=== PATIENT | female | born 1930 | race Caucasian/White ===

== ENCOUNTER 2017-02-22 13:59 | Emergency (ER) | payer MEDICARE ==
[~2017-02-22] VITALS: Ht 162.6 cm; Wt 69.4 kg
[~2017-02-22 13:59] MED LIST: CENTRUM SILVER1 EAC3 PO; ECPIRIN325 MG PO; LEVOTHYROXINE50 MCG PO; MACRODANTIN100 MG PO; PRAVACHOL20 MG PO; ZESTRIL40 MG PO; ZIPSOR25 MG PO
[2017-02-22] MEDS ORDERED: ZOFRAN ODT4 MG PO (15:31)
== END 2017-02-22 15:59 | disposition home or self-care (01) ==
LOC: ED 13:59
DX: R10.9 Unspecified abdominal pain (principal); E03.9 Hypothyroidism, unspecified; I10 Essential (primary) hypertension; Z90.710 Acquired absence of both cervix and uterus; Z79.899 Other long term (current) drug therapy; Z79.82 Long term (current) use of aspirin
CPT/HCPCS: 80053; 81001; 82150; 83690; 85025; 96374; 99283

== ENCOUNTER 2017-03-03 12:30 | Inpatient (IN) | payer MEDICARE ==
[~2017-03-03] VITALS: Ht 162.6 cm; Wt 65.0 kg
[~2017-03-03 12:30] MED LIST changes: +ZOFRAN ODT4 MG PO
[2017-03-03] MEDS ORDERED: CALCIUM500 MG PO (17:13)
--- NOTE | 2017-03-05 07:42 | EKG ---
[facility] [address] [facility] [place], [place] [address] Signed Normal sinus rhythm Normal ECG No previous ECGs available Confirmed by ALEXANDRA MAR MD ([id number]) on 03/05/2017 7:42:10 AM Electronically Signed By: ALEXANDRA MAR MD 03/05/17 0742 PATIENT NAME: ESDRAS GUILLEN Electrocardiogram DATE OF : 32 PHYSICIAN: ALEXANDRA MAR MD REPORT #: [id number] REPORT IS CONFIDENTIAL AND NOT TO BE RELEASED WITHOUT AUTHORIZATION
--- NOTE | 2017-03-05 07:59 | OR ---
[facility] [address] [place], [place] [address] Signed DATE OF OPERATION: 03/04/2017 SURGEON: Jamarcus Kelly MD PREOPERATIVE DIAGNOSIS: Obstructing proximal transverse colon cancer. POSTOPERATIVE DIAGNOSIS: Obstructing proximal transverse colon cancer. PROCEDURE: 1. Right colectomy with vel [id number]-db-[id number] ileocolic anastomosis. 2. Right liver shave biopsy. ESTIMATED BLOOD LOSS: Minimal. FINDINGS: Jena had a circumferential tumor in the proximal transverse colon, probably 5 cm in length. The lumen was so small, our nurse could not pass her pinky through the lumen. She also had multiple visible palpable lymph nodes, 1 cm less in size along the branch of the middle colic artery and the ileocolic artery. She had just a tiny macular lesion on the surface of the liver about 4 to 5 cm lateral to the gallbladder. We removed that sharply with the 15 blade knife. No other evidence of any lesions on the liver or the peritoneal surfaces. INDICATIONS: Jena is an 86-year-old female, who remains quite healthy and active with good functional status. She uses her cane mainly for balance reasons. She still lives in a mobile home with her , who has Alzheimer disease. She is still able to drive and get her around to help him quite a bit. Within the last 3 weeks, maybe 4 weeks, she was having trouble with significant abdominal distention and pain, and nausea and vomiting. She came to the emergency room for evaluation. In the emergency room, her white count was normal, but her sodium was low at 124. Her CT scan of the abdomen and pelvis showed a 5 cm circumferential mass in the proximal transverse colon with dilation of the right colon and a little bit of the terminal ilium as well. I was asked to see her as a general surgeon pmo consultant. She told me that her last colonoscopy was over 10 years ago. She also said that her went through a colon cancer and had surgery and chemotherapy and did well. That was also a little over 10 years ago. We admitted her to the hospital to correct her sodium and by morning, she had passed quite a bit of flatus. Electronically Signed By: JAMARCUS KELLY MD 03/05/17 0759 PATIENT NAME: ESDRAS GUILLEN OPERATIVE REPORT DATE OF : 31 PHYSICIAN: JAMARCUS KELLY MD REPORT #: [id number] REPORT IS CONFIDENTIAL AND NOT TO BE RELEASED WITHOUT AUTHORIZATION [facility] [address] [place], [place] [address] Signed Her abdomen was markedly improved. We did order a CEA level and that came back normal at 0.962. I had a long discussion with Jena and her daughter and explained that we would generally like to perform a colonoscopy to rule out any synchronous lesions. However, Jena has been quite miserable over the last 2 to 3 weeks and we were not sure if she could tolerate a formal bowel prep. Consequently, we elected to proceed with a right colectomy with a thought we will do a colonoscopy in a few weeks when she is healed up and feeling better. In addition, the CT scan did not show any obvious metastatic disease in the abdomen, particularly with respect to the liver. I reviewed with Jena and her daughter, the nature of a right colectomy through a vertical midline incision. They understand the nature of that surgery along with expected intraop and postop course. There is risk to surgery including, but not limited to bleeding, infection, scarring, change in contour of the skin, damage to bowel, damage to the ureter, anastomotic leak, incisional hernias and other unforeseen comorbidities. They are well aware of the possibility of chemo given her 's history. She had expressed understanding and wished to proceed. PROCEDURE NOTE: I met with Jena, her and the daughter and granddaughter in the preop area. All questions were answered. Jena was then taken into the operating room and placed in the supine position under general endotracheal tube anesthesia. She was already on preoperative antibiotics along with subcutaneous heparin. SCDs are already in place. Paulino catheter was inserted with return of clear yellow urine. When she was pharmacologically paralyzed, I re-examine the abdomen and I still could not feel a palpable mass in the right upper quadrant. After this, she was prepped and draped in the usual sterile fashion. We then proceeded with a standard repair umbilical midline incision and carried it into the abdomen with the help of the cautery without difficulty. One could easily see and feel her circumferential constricting tumor in the proximal transverse colon. It had drawn the gastrocolic ligament up, so it was a little bit close to the greater curve of the stomach. The right colon was full of liquid and chronically distended and thickened and it made it more difficult to elevate the colon up and out of the abdomen and hold it in place. We had additional nurse scrub in and we placed our Bookwalter retractor in order to access the right colon. We freed up along the cecum and up the white line of Toldt around the hepatic flexure and over towards the pancreas and the duodenum. This brought the colon up and out of the abdomen. We then went about 10 cm distal to the tumor and we divided the colon transversely with the help of a linear stapler. The mesocolon was divided between Pean clamps and 0 Vicryl ties. I had to separate the omentum from the greater curve of the stomach very close to the stomach in order to capture all the omentum in the mesocolon. We continued to divide the mesocolon then toward the head of the pancreas between Pean clamps and 0 Vicryl ties. I could feel the lymph nodes down around the branch of the middle colic artery as well as the ileocolic artery. All palpable lymph nodes were removed en-bloc with the specimen. Fortunately, the tumor was not adherent to any other structures. After this, we Electronically Signed By: JAMARCUS KELLY MD 03/05/17 0759 PATIENT NAME: ESDRAS GUILLEN OPERATIVE REPORT DATE OF : 31 PHYSICIAN: JAMARCUS KELLY MD REPORT #: [id number] REPORT IS CONFIDENTIAL AND NOT TO BE RELEASED WITHOUT AUTHORIZATION [address] [address] Signed continued to divide the mesocolon down towards the terminal ilium and we divided the terminal ilium transversely with a linear stapler about 10 cm proximal to the ileocecal valve. The entire specimen was passed off the field. The specimen was opened on the back table by a circulating nurse and the pictures were taken for photodocumentation. After this, we brought the terminal ilium over to the transverse colon and performed a otxs-dq-ofed stapled anastomosis. We held the mesenteric side of the bowel together with interrupted silk sutures and then opened the corners of our staple lines and placed our 75 mm linear stapler for the anastomosis. After this, the end of the small bowel and large bowel were closed transversely with the help of the TA 60 stapler. We then used additional silk Lembert sutures to invert the anterior staple line on the antimesenteric side of the colon. Some additional stitches were placed between the colon and small bowel at the crotch of the staple line. After this, the mesenteric opening was closed with running 0 Vicryl suture. We used copious amounts of warm antibiotic saline solution to irrigate out the abdomen and suction that out until clear. On inspection, we found one single 2.5-3 mm macular lesion on the right lobe of the liver on the surface just about 4 cm lateral to the gallbladder fossa. We come underneath that sharply with our 15 blade knife for a complete shave biopsy. We then cauterized the biopsy site for hemostasis. We could not palpate nor see any other visible lesions involving the right or left lobe of the liver. There was no peritoneal studding. After this, the midline fascia was closed with interrupted #1 PDS figure-of-8 sutures. The wound was irrigated and suctioned out until clear. We closed the dermis with interrupted 3-0 Monocryl sutures. Vel were then used to approximate the skin. Dry gauze and tape were then applied over the incision. Jena was then awakened from anesthesia, extubated in the OR, and taken to the recovery room in stable condition. Jena's procedure was prolonged and difficult. The right colon was very distended and full of fluid, very heavy, very awkward to hold in place. Consequently, we needed an additional nurse to help scrub in to help with retraction and holding the colon, so we would not avulse the colon from its mesenteric attachment. In addition, this surgery took 30 to 45 minutes longer than usual. Again, because of these issues, her case was prolonged and difficult. Jamarcus Kelly MD Electronically Signed By: JAMARCUS KELLY MD 03/05/17 0759 PATIENT NAME: ESDRAS GUILLEN OPERATIVE REPORT DATE OF : 31 PHYSICIAN: JAMARCUS KELLY MD REPORT #: [id number] REPORT IS CONFIDENTIAL AND NOT TO BE RELEASED WITHOUT AUTHORIZATION [address] [place], [place] [address] Signed ALB/MODL /[id number] cc: MD Jamarcus Beyer MD Electronically Signed By: JAMARCUS KELLY MD 03/05/17 0759 PATIENT NAME: ESDRAS GUILLEN OPERATIVE REPORT DATE OF : 31 PHYSICIAN: JAMARCUS KELLY MD REPORT #: [id number] REPORT IS CONFIDENTIAL AND NOT TO BE RELEASED WITHOUT AUTHORIZATION
--- NOTE | 2017-03-05 07:59 | CONS ---
[facility] [address] [place], [place] [address] Signed DATE OF CONSULTATION: 03/03/2017 CHIEF COMPLAINT: Generalized abdominal pain with nausea and vomiting. HISTORY OF PRESENT ILLNESS: Jena is an 86-year-old female who is generally healthy and has good functional status. 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 They live in a mobile home here in [place], and she continues to drive and generally does quite well. She told me that her had colon cancer a number of years ago and had to go through chemotherapy. Jena said she had her last colonoscopy more than 10 years ago. Over the last 2 or 3 weeks, she has had upper abdominal pain with generalized abdominal distention and then nausea and vomiting, may worse after eating. Apparently, she came to the emergency room earlier in the month with UTI and then came back with this upper abdominal pain. I think this might be her 3rd trip back to the ER. On this occasion, she has been hemodynamically stable and her white count was normal, but she went ahead and had a CT scan performed and sure enough she has a 5 cm apple-core lesion in the proximal transverse colon with everything dilated proximal to that. Consequently, I was asked to admit her as a general surgeon on-call. 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 PAST SURGICAL HISTORY: Right total hip replacement, a full hysterectomy for uterine prolapse, colonoscopy greater than 10 years ago. SOCIAL HISTORY: She does not smoke or drink. She is to her who has Alzheimer dementia and also had a previous history of colon cancer. They live here in town in their mobile home. She continues to drive. He drives a little bit. They prefer the local [facility]. Dr. Dusty Barrios is her primary care provider. They have 3 children in total. She is retired from retail. Pamela Cedillo is her daughter at [phone], who lives in [place], [place]. FAMILY HISTORY: Mainly coronary artery disease. REVIEW OF SYSTEMS: She had 10 systems reviewed and seemed to be pretty healthy, otherwise. Electronically Signed By: JAMARCUS KELLY MD 03/05/17 0759 PATIENT NAME: ESDRAS GUILLEN CONSULTATION DATE OF : 31 PHYSICIAN: JAMARCUS KELLY MD REPORT #: [id number] REPORT IS CONFIDENTIAL AND NOT TO BE RELEASED WITHOUT AUTHORIZATION [facility] [address] [place] [id number] Signed ALLERGIES: None. MEDICATIONS: Nitrofurantoin, Zofran, lisinopril, pravastatin, diclofenac, levothyroxine, aspirin, and multivitamin. PHYSICAL EXAMINATION: VITAL SIGNS: Blood pressure 120/72, heart rate 78, respiratory rate 16, temperature 97.2, she is 96% on room air. She is 5 feet 4 inches and 68 kg. GENERAL: Jena is an 86-year-old female, lying supine, semi-recumbent in her ER bed. Her daughter is at the bedside. Jena does not appear systemically ill or toxic. She is an excellent historian and very pleasant to talk with. LUNGS: Generally clear to auscultation bilaterally. HEART: Regular rate and rhythm. ABDOMEN: Shows moderate distention. Generally soft and nontender. I cannot feel a mass in the right upper quadrant nor over the liver edge. LABORATORY DATA: Shows white blood count of 5.0, hemoglobin 12, her mean cell volume 78. Her sodium is low at 124, BUN 13, creatinine 0.72. Liver function tests are negative. Albumin is 3.9. Her urinalysis shows some ketones and +1 bacteria. RADIOGRAPHIC STUDIES: The CT scan of the abdomen and pelvis is reviewed along with the report. Indeed she has a 5 cm mass in the proximal transverse colon with the right colon and small bowel distended and fluid filled. She has a small hiatal hernia and little diverticulosis. ASSESSMENT AND PLAN: Jena is an 86-year-old female who appears to have an obstructing colon cancer in the proximal transverse colon. She also has significant hyponatremia. She is going to be admitted at this time and started on IV fluids. She may have a continued urinary tract infection, so we will go ahead and start antibiotics to cover not only the urinary tract infection, but her bowel as well. Once we have her medically stable, she is going to need a right colectomy. I have explained this to Jena and her daughter, they have expressed understanding and agreed to the above plan. Jamarcus Kelly MD Electronically Signed By: JAMARCUS KELLY MD 03/05/17 0759 PATIENT NAME: ESDRAS GUILLEN CONSULTATION DATE OF : 31 PHYSICIAN: JAMARCUS KELLY MD REPORT #: [id number] REPORT IS CONFIDENTIAL AND NOT TO BE RELEASED WITHOUT AUTHORIZATION [facility] [address] [address] [place] [address] Signed ALB/MODL /[id number] cc: MD Dusty Madera MD Electronically Signed By: JAMARCUS KELLY MD 03/05/17 0759 PATIENT NAME: ESDRAS GUILLEN CONSULTATION DATE OF : 31 PHYSICIAN: JAMARCUS KELLY MD REPORT #: [id number] REPORT IS CONFIDENTIAL AND NOT TO BE RELEASED WITHOUT AUTHORIZATION
[2017-03-09] MEDS ORDERED: MAPAP325 MG PO (09:31)
[2017-03-09] MEDS ORDERED: HYDROCODON-ACE1 EA10 PO (09:32)
--- NOTE | 2017-03-26 18:42 | DS ---
[facility] [address] [place], [place] [address] Signed ADMISSION DATE: 03/03/2017 DISCHARGE DATE: 03/09/2017 DIAGNOSIS: Obstructing colon cancer proximal transverse colon. PROCEDURE: Right colectomy. HISTORY OF PRESENT ILLNESS: Jena is an 86-year-old female who presented to our ER with basically symptoms of a bowel obstruction. She said her last colonoscopy was over 10 years ago. She told us that her has been through colon cancer a little over 10 years ago and actually received some chemotherapy. Her CT scan showed a 5 cm apple-core lesion in the proximal transverse colon. We admitted her overnight and gave her hydration. She did pass some flatus overnight and so her abdominal distension was markedly improved. However, we did not feel she was going to tolerate a bowel prep, so we went and took her to surgery on 03/04/2017. She had a classic right colectomy with a stapled xzqa-sl-fwco ileocolic anastomosis. She had one tiny 2-3 mm lesion on the surface of the right lobe of the liver and we took a shave biopsy and unfortunately that since come back with cancer. Also, she has cancer in her lymph nodes. She did well both intra and postop. I had left town for the holidays and Dr. Rodriguez was able to cover Jena through the rest of her hospital stay. He discharged her to home on 03/09/2017. DISCHARGE PLANS AND MEDICATIONS: Jena was discharged home by Dr. Rodriguez. She can certainly continue her regular diet at home. She can walk up and downstairs and shower and bathe as needed. She should not lift over about 25 pounds. The krissy were left in place to be removed in the office. She has made an appointment to follow up with me in my office here in a week or so. She and her family had expressed understanding and agreed with above plan. Jamarcus Kelly MD Electronically Signed By: JAMARCUS KELLY MD 03/26/17 1842 PATIENT NAME: ESDRAS GUILLEN DISCHARGE SUMMARY DATE OF : 31 PHYSICIAN: JAMARCUS KELLY MD REPORT #: [id number] REPORT IS CONFIDENTIAL AND NOT TO BE RELEASED WITHOUT AUTHORIZATION [facility] [address] [place] [address] Signed [facility] /[id number] cc: MD Jamarcus Beyer MD Electronically Signed By: JAMARCUS KELLY MD 03/26/17 184 PATIENT NAME: ESDRAS GUILLEN DISCHARGE SUMMARY DATE OF : 31 PHYSICIAN: JAMARCUS KELLY MD REPORT #: [id number] REPORT IS CONFIDENTIAL AND NOT TO BE RELEASED WITHOUT AUTHORIZATION
== END 2017-03-09 12:55 | disposition home or self-care (01) | DRG 330 ==
LOC: ED 12:30 → MS 17:06
PROVIDERS: ADMIT Colon & Rectal Surgery
PROC: 0FB10ZX Excision of Right Lobe Liver, Open Approach, Diagnostic (ICD-10-PCS; 2017-03-04)
PROC: 0DBL0ZZ Excision of Transverse Colon, Open Approach (ICD-10-PCS; principal; 2017-03-04 12:00)
DX: D49.0 Neoplasm of unspecified behavior of digestive system (principal); K56.699 Other intestinal obstruction unspecified as to partial versus complete obstruction; E87.1 Hypo-osmolality and hyponatremia; K59.09 Other constipation; I10 Essential (primary) hypertension; E78.5 Hyperlipidemia, unspecified; E03.9 Hypothyroidism, unspecified; K57.90 Diverticulosis of intestine, part unspecified, without perforation or abscess without bleeding; K44.9 Diaphragmatic hernia without obstruction or gangrene; I70.90 Unspecified atherosclerosis; E86.1 Hypovolemia
CPT/HCPCS: 00790; 36415; 74177; 80048; 80053; 81001; 82378; 83690; 83735; 83930; 83935; 84100; 84550; 85025; 88305; 88309; 93005; 93010; 94760; 94762; 97110; 97116; 97162; J0330; J1100; J1170; J1644; J1720; J1885; J1956; J2250; J2270; J2405; J2704; J2710; J2765; J3010; J7030; J7120; Q9967

== ENCOUNTER 2017-04-15 09:01 | Day surgery (SDC) | payer MEDICARE ==
[~2017-04-15] VITALS: Ht 162.6 cm; Wt 61.2 kg
[~2017-04-15 09:01] MED LIST changes: +CALCIUM500 MG PO; +HYDROCODON-ACE1 EA10 PO; +MAPAP325 MG PO
--- NOTE | 2017-04-15 10:30 | NUR ---
04/15/17 1030 Solange Guadarrama 1027-PATIENT ARRIVED TO PACU ON 3L NC O2 LAYING ON LEFT LATERAL SIDE. PATIENT AROUSES TO VERBAL STIMULI OPENS EYES. DENIES PAIN ENCOURAGED TO PASS FLATUS.
--- NOTE | 2017-04-17 10:17 | OR ---
[facility] [address] [place], [place] [address] Signed DATE OF OPERATION: 04/15/2017 SURGEON: Jamarcus Kelly MD PREOPERATIVE DIAGNOSIS: Colon cancer, requiring right colectomy (). POSTOPERATIVE DIAGNOSES: 1. A 5 to 8 mm polyps in mid transverse colon, 55 cm and 52 cm. 2. Significant sigmoid diverticulosis with narrowing. 3. Internal anal skin tags. PROCEDURE: Colonoscopy with snare polypectomy at 55 cm and hot biopsies. ESTIMATED BLOOD LOSS: None. INDICATIONS: Esdras is an 86-year-old female, who came to us in the hospital with an obstructing colon cancer in the proximal transverse colon. She underwent a routine right colectomy. A 16/ lymph nodes were positive. 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 In the meantime, she has actually been doing very well. Her went through colon cancer a number of years ago with the help of Dr. Alvarez. Consequently, she and her and her family are very familiar with this whole process. She is out from surgery 5 to 6 weeks, so we had her come back for a colonoscopy to rule out any synchronous lesions. I gave her a booklet on colorectal polyps and cancer. We looked at that together. We also reviewed colonoscopy in detail. We also looked through our bowel prep. She understands the need for IV conscious sedation. She had expressed understanding and wished to proceed. She understands there is risk including but not limited to, gas bloating, crampy abdominal pain, bleeding, perforation, requiring surgery, and missed diagnosis. PROCEDURE NOTE: Esdras was taken into our endoscopy suite and placed in the left lateral decubitus position. She was given divided doses of 5 mg Versed and 100 mcg of fentanyl. She was given IV clindamycin before the procedure. A digital rectal exam was performed and this was unremarkable. The adult colonoscope was then introduced and advanced all the way around into the cecum under direct visualization of camera. It took some extra time and extra sedation to get through her sigmoid colon. She has moderate-sized diverticula Electronically Signed By: JAMARCUS KELLY MD 04/17/17 1017 PATIENT NAME: ESDRAS GUILLEN OPERATIVE REPORT DATE OF : 31 PHYSICIAN: JAMARCUS KELLY MD REPORT #: [id number] REPORT IS CONFIDENTIAL AND NOT TO BE RELEASED WITHOUT AUTHORIZATION [facility] [address] [place], [place] [address] Signed throughout the sigmoid colon and it was somewhat narrowed given her body habitus. Her bowel prep was good. The scope was then slowly withdrawn. We could easily see the anastomosis in several krissy. It was healing up very nicely. The above-mentioned polyps were removed with the help of hot biopsy forceps. We did use our snare at 55 cm to remove that polyp. It was suctioned through our scope and captured in our canister. The rectum was unremarkable. Upon retroflexion of the scope, she has some tiny internal hemorrhoid tissue. After this, the gas was suctioned out and the colonoscope removed. Esdras tolerated the procedure quite well. RECOMMENDATIONS: I will see Esdras back in my office in 7 to 14 days to review her results. Jamarcus Kelly MD ALB/MODL /[id number] cc: MD Dusty Spann MD Electronically Signed By: JAMARCUS KELLY MD 04/17/17 1017 PATIENT NAME: ESDRAS GUILLEN OPERATIVE REPORT DATE OF : 31 PHYSICIAN: JAMARCUS KELLY MD REPORT #: [id number] REPORT IS CONFIDENTIAL AND NOT TO BE RELEASED WITHOUT AUTHORIZATION
[2017-08-13] MEDS ORDERED: NORVASC10 MG PO (14:10)
[2017-08-13] MEDS ORDERED: STOOL SOFTENER100 MG PO (14:10)
[2017-08-13] MEDS ORDERED: IRON325 M1 PO (14:10)
== END 2017-04-15 11:20 | disposition home or self-care (01) ==
LOC: DS 09:01 → OPS 09:01 → DS 10:30 → OPS 11:20
PROVIDERS: Colon & Rectal Surgery
PROC: 0DBL8ZZ Excision of Transverse Colon, Via Natural or Artificial Opening Endoscopic (ICD-10-PCS; 2017-04-15)
PROC: 0DBL8ZZ Excision of Transverse Colon, Via Natural or Artificial Opening Endoscopic (ICD-10-PCS; principal; 2017-04-15 10:30)
DX: K63.5 Polyp of colon (principal); K57.30 Diverticulosis of large intestine without perforation or abscess without bleeding; K56.609 Unspecified intestinal obstruction, unspecified as to partial versus complete obstruction; K64.4 Residual hemorrhoidal skin tags; I25.10 Atherosclerotic heart disease of native coronary artery without angina pectoris; I10 Essential (primary) hypertension; I73.9 Peripheral vascular disease, unspecified; E03.9 Hypothyroidism, unspecified; M19.90 Unspecified osteoarthritis, unspecified site; M48.061 Spinal stenosis, lumbar region without neurogenic claudication; K44.9 Diaphragmatic hernia without obstruction or gangrene; Z90.710 Acquired absence of both cervix and uterus; Z96.641 Presence of right artificial hip joint; Z85.038 Personal history of other malignant neoplasm of large intestine
CPT/HCPCS: 88305; 99153; G0500; J2250; J3010; J7120